=== PATIENT | male | born 1985 | race Caucasian/White ===

== ENCOUNTER 2016-07-25 09:31 | Emergency (ER) | payer MEDICAID ==
[~2016-07-25] VITALS: Ht 185.4 cm; Wt 90.0 kg
[2016-07-25 09:48] VITALS: Ht 185.4 cm; Wt 90.0 kg
[2016-07-25] MEDS ORDERED: KETOROLAC 30 MG INJ IM STA (10:38)
--- NOTE | 2016-07-25 10:49 | ERD ---
ER Documentation Chief Complaint Date/Time DATE: 07/25/16 TIME: 10:46 Chief Complaint Complains of back x 2 days HPI Patient is a 30-year-old male who presents with lower right back pain 1 week. 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 He states that one week ago he was lifting heavy boxes and developed pain to his lower right side of his back. He states that the pain is gotten worse after continuously carrying large boxes. He denies radiation of pain. Denies numbness or tingling. He has not taken any medication for his symptoms. Denies bowel or bladder incontinence or difficulty urinating or stooling. Denies fever or chills. Denies chest pain, cough, shortness of breath or difficulty breathing. Denies leg pain or swelling, recent travel. Denies urinary symptoms. ROS All systems reviewed and are negative except as per history of present illness. Medications Home Meds Active Scripts Ibuprofen* (Motrin*) 800 Mg Tab, 800 MG PO Q6, #30 TAB Prov:JOHANN MACHADO-C 07/25/16 Orphenadrine Citrate (Norflex) 100 Mg Tablet.sa, 100 MG PO BID for 14 Days, TAB.SA Prov:MARILEETAJOHANN BENEDICT PA-C 07/25/16 Hydrocodone/Acetaminophen ([place] 10-325 Tablet) 1 Each Tablet, 1 TAB PO Q6H Y for PAIN, #7 TAB Prov:JOHANN MACHADO PA-C 07/25/16 Allergies Allergies: Coded Allergies: No Known Allergy (Unverified , 07/25/16) PMhx/Soc Medical and Surgical Hx: pt denies Medical Hx, pt denies Surgical Hx History of Surgery: No Anesthesia Reaction: No Hx Neurological Disorder: No Hx Respiratory Disorders: No Hx Cardiac Disorders: No Hx Psychiatric Problems: No Hx Miscellaneous Medical Probl: No Hx Alcohol Use: No Hx Substance Use: No Hx Tobacco Use: No Smoking Status: Never smoker FmHx Family History: No coronary disease, No diabetes, No other Physical Exam Vitals Vital Signs Date Time Temp Pulse Resp B/P Pulse Ox O2 Delivery O2 Flow Rate FiO2 07/25/16 09:48 97.3 89 20 149/73 98 Physical Exam GENERAL: Well-developed, well-nourished male. Appears in no acute distress. LUNG: Clear to auscultation bilaterally. No rhonchi, wheezing, rales or coarse breath sounds. HEART: Regular rate and rhythm. No murmurs, rubs or gallops. BACK: Tenderness to the lower lumbar spinal and paraspinal muscles. Difficulty with flexion and extension. Lateral rotation is intact. Pulses intact. Reflexes intact. No step-offs or deformities no erythema or swelling. No signs of infection. Extremities: Equal pulses bilaterally. No peripheral clubbing, cyanosis or edema. No unilateral leg swelling. NEUROLOGIC: Alert and oriented. Moving all four extremities. 5/5 strength in all extremities. Normal speech. Steady gait. SKIN: Normal color. Warm and dry. No rashes or lesions. Capillary refill < 2 seconds Results 24 hrs Current Medications Medications (Trade) Dose Ordered Sig/Rohan Route PRN Reason Start Time Stop Time Status Last Admin Dose Admin Ketorolac Tromethamine (Toradol) 30 mg ONCE STAT IM 07/25/16 10:38 07/25/16 10:43 DC 07/25/16 10:43 Procedures/MDM ER COURSE: I kept the patient and/or family informed of laboratory and diagnostic imaging results throughout the emergency room course. [place] [id number] Radiology Main Line: [phone] DIAGNOSTIC IMAGING REPORT Patient: BRANDON VALADEZ : 1985 Age: 30 Sex: M MR #: [id number] DOS: 07/25/16 1038 Ordering MD: JOHANN MACHADO PA-C Location: [facility] Room/Bed: PROCEDURE: XR lumbosacral Spine Series CLINICAL INDICATION: Low back pain TECHNIQUE: 3 standard radiographs were taken of the lumbosacral spine. COMPARISON: None FINDINGS: Alignment: the osseous elements are well aligned without evidence of subluxation. Disk spaces: the disk spaces are adequately maintained. Osseous structures: There is a vertically oriented lucency through the left L3 transverse process suspicious for a fracture of uncertain chronicity. The remaining osseous elements appear intact. there is no significant spondylosis. Joint spaces: the facet joints joints appear unremarkable. The sacroiliac joints appear normal. Soft tissues: appear unremarkable. IMPRESSION: 1. Fracture of uncertain chronicity, but likely not acute, involving the left L3 transverse process. 2. Otherwise, unremarkable three-view lumbosacral spine series. Physician Irene Date Time Electronically viewed and signed by Minor Willingham Physician on 07/25/2016 11:34 RH/ CC: JOHANN MACHADO PA-C [place] [id number] Radiology Main Line: [phone] DIAGNOSTIC IMAGING REPORT Patient: BRANDON VALADEZ : 1985 Age: 30 Sex: M MR #: [id number] DOS: 07/25/16 1144 Ordering MD: JOHANN MACHADO PA-C Location: [facility] Room/Bed: PROCEDURE: CT of the lumbar spine without contrast CLINICAL INDICATION: Low back pain TECHNIQUE: CT scan of the lumbar spine was performed. No IV contrast was administered. Coronal and sagittal reformatted images were obtained from the axial source images. images. The calculated radiation dose measures 441.23 mGy centimeters. The CTDI measures 13.70 mGy. Images were reviewed on a high- resolution PACS workstation. One or more of the following dose reduction techniques were used: - Automated exposure control. - Adjustment of the mA and/or kV according to patient size . - Use of iterative reconstruction technique. Images were reviewed on a high-resolution PACS workstation COMPARISON: Radiographs of the same day FINDINGS: There is preservation of the normal lumbar lordosis. There are no acute vertebral body fractures. The transverse processes of L3 are normal. The paraspinal soft tissues are within normal limits. T12-L1 through L3-L4: The disk height and posterior disk contour are preserved. There is no osseous spinal stenosis. The facet joints are maintained. L4-L5: Mild endplate productive change is noted. A small disk bulge is present without osseous central canal stenosis. The osseous neural foramen are patent as well. The facet joints are maintained. L5-S1: Mild disk space narrowing. A small disk bulge is seen asymmetric to the right with endplate productive change partially extending to the right neural foramen. The central canal is patent. There is mild right neural foraminal stenosis. Left neural foramen is patent. The SI joints are maintained. IMPRESSION: 1. No acute vertebral body fractures. Normal CT appearance of the L3 transverse processes. 2. Mild degenerative disk disease at L4-5 and L5-S1. 3. Small disk bulge likely with a superimposed small right lateral protrusion and mild right neural foraminal stenosis at L5-S1. RPTAT: TT .Jeremy Perez MD, MD Date Time Electronically viewed and signed by .Jeremy Perez MD, on 07/25/2016 13:43 .d/ CC: JOHANN MACHADO PA-C Medication: Toradol 30. Patient tolerated occasional with no adverse reaction. Seen improvement in symptoms. MEDICAL DECISION MAKING: This is a 30-year-old male who presents with low back pain. Vital signs were reviewed. Patient is afebrile. Patient is not hypoxic. Patient is not toxic or ill-appearing. Patient likely has muscle strain of his back. Low suspicion for cauda equine syndrome, spinal epidural hematoma, spinal epidural abscess, osteomyelitis, fracture, aortic dissection, AAA, pyelonephritis, nephrolithiasis , septic stone, obstructed stone. X-ray is read by radiologist shows fracture of uncertain chronicity but likely not acute involving the left L3 transverse process, otherwise unremarkable 3 view lumbosacral spine series. I consulted with Dr. Young who reviewed his radiology report and advised to order a follow up CT scan. Her CT scan as read by radiologist shows no acute vertebral body fractures. Normal CT appearance of the L3 transverse processes. Mild degenerative disc disease at L4-5 and L5-S1. Small disc bulge likely with a superimposed small right lateral protrusion and mild right neural foraminal stenosis at L5-S1. Patient also has sciatica. DISCHARGE: At this time, patient is stable for discharge and outpatient management with no new complaints during the ER course. Patient was sent home with [place] and ibuprofen and Norflex. I have also given a note for patient for work. Patient advised to not lift heavy boxes and to follow-up with primary care for further evaluation. Patient will be discharged home with instructions to recheck for new or worsening symptoms such as fever, nausea, weakness, LOC and to follow up with primary care in the next 1-2 days. Patient was advised to return to the ER for any new or worsening symptoms. Plan was discussed and patient and/or family understands and agrees. Home instructions were given. Departure Diagnosis: Primary Impression: Back pain Back pain location: low back pain Chronicity: unspecified Back pain laterality: right Sciatica presence: without sciatica Qualified Code: M54.5 - Right-sided low back pain without sciatica, unspecified chronicity Additional Impression: Sciatica Laterality: right Qualified Code: M54.31 - Sciatica of right side Condition: Stable JOHANN MACHADO PA-C Jul 25, 2016 10:49
[2016-07-25] MEDS ORDERED: HYDR-902 PO (11:24)
[2016-07-25] MEDS ORDERED: ORPH100T PO (11:25)
[2016-07-25] MEDS ORDERED: IBUP800T25 PO (11:25)
--- NOTE | 2016-07-25 11:34 | RADRPT ---
PROCEDURE: XR lumbosacral Spine Series CLINICAL INDICATION: Low back pain TECHNIQUE: 3 standard radiographs were taken of the lumbosacral spine. COMPARISON: None FINDINGS: Alignment: the osseous elements are well aligned without evidence of subluxation. Disk spaces: the disk spaces are adequately maintained. Osseous structures: There is a vertically oriented lucency through the left L3 transverse process paige spicious for a fracture of uncertain chronicity. The remaining osseous elements appear intact. th ere is no significant spondylosis. Joint spaces: the facet joints joints appear unremarkable. The sacroiliac joints appear normal. Soft tissues: appear unremarkable. IMPRESSION: 1. Fracture of uncertain chronicity, but likely not acute, involving the left L3 transverse process . 2. Otherwise, unremarkable three-view lumbosacral spine series. Physician Irene Date Time Electronically viewed and signed by Minor Willingham Physician on 07/25/2016 11:34 /
--- NOTE | 2016-07-25 13:44 | RADRPT ---
PROCEDURE: CT of the lumbar spine without contrast CLINICAL INDICATION: Low back pain TECHNIQUE: CT scan of the lumbar spine was performed. No IV contrast was administered. Coronal a nd sagittal reformatted images were obtained from the axial source images. images. The calculated ra diation dose measures 441.23 mGy centimeters. The CTDI measures 13.70 mGy. Images were reviewed on a high-resolution PACS workstation. One or more of the following dose reduction techniques were used: - Automated exposure control. - Adjustment of the mA and/or kV according to patient size . - Use of iterative reconstruction technique. Images were reviewed on a high-resolution PACS workstation COMPARISON: Radiographs of the same day FINDINGS: There is preservation of the normal lumbar lordosis. There are no acute vertebral body fractures. T he transverse processes of L3 are normal. The paraspinal soft tissues are within normal limits. T12-L1 through L3-L4: The disk height and posterior disk contour are preserved. There is no osseou s spinal stenosis. The facet joints are maintained. L4-L5: Mild endplate productive change is noted. A small disk bulge is present without osseous cent ral canal stenosis. The osseous neural foramen are patent as well. The facet joints are maintained . L5-S1: Mild disk space narrowing. A small disk bulge is seen asymmetric to the right with endplate productive change partially extending to the right neural foramen. The central canal is patent. T here is mild right neural foraminal stenosis. Left neural foramen is patent. The SI joints are maintained. IMPRESSION: 1. No acute vertebral body fractures. Normal CT appearance of the L3 transverse processes. 2. Mild degenerative disk disease at L4-5 and L5-S1. 3. Small disk bulge likely with a superimposed small right lateral protrusion and mild right neural foraminal stenosis at L5-S1. RPTAT: TT .Jeremy Perez MD, MD Date Time Electronically viewed and signed by .Jeremy Perez MD, MD on 07/25/2016 13:43 .d/
== END 2016-07-25 14:05 | disposition home or self-care (01) ==
LOC: FTE 09:31
DX: M54.41 Lumbago with sciatica, right side (principal)
CPT/HCPCS: 72100; 72131; J1885; 96372